=== PATIENT | female | born 1985 | race Caucasian/White ===

== ENCOUNTER 2017-12-02 11:50 | Emergency (ER) | payer OTHER ==
--- NOTE | 2017-12-02 13:18 | ED Physician Documentation ---
History of Present Illness - Stated complaint Stated Complaint: L CONGESTION - Chief complaint Chief Complaint: Heent - History obtained from History obtained from: Patient - History of Present Illness Timing: Yesterday Pain level max: 0 Pain level now: 0 Improved by: Nothing Worsened by: Nothing - Additonal information Additional information: Patient is a 32-year-old female with a history of cerumen impaction in the past. States that her left ear feels full and she cannot hear out of the ear. No pain. No fevers. No congestion. No cough. No possibility of Review of Systems Constitutional: denies: Fever, Chills Nose: denies: Rhinorrhea / runny nose, Congestion Throat: denies: Sore throat : denies: Now EGA PD PAST MEDICAL HISTORY - Past Medical History Past Medical History: Yes Endocrine/Autoimmune: None Psych: ADD/ADHD - Past Surgical History Past Surgical History: No - Present Medications Home Medications: Ambulatory Orders Medication Instructions Recorded Confirmed Dextroamphetamine/Amphetamine 20 mg PO DAILY 05/07/14 07/13/15 [Adderall 20 mg Tablet] Multivitamin [Multivitamins] 1 each PO 12/02/17 - Allergies Allergies/Adverse Reactions: Allergies Allergy/AdvReac Type Severity Reaction Status Date / Time amoxicillin trihydrate * Allergy Unknown Verified 12/02/17 12:12 [From Augmentin] potassium clavulanate * Allergy Unknown Verified 12/02/17 12:12 [From Augmentin] - Social History Does the pt smoke?: No Smoking Status: Never smoker Does the pt drink ETOH?: Yes Does the pt have substance abuse?: No - Immunizations Immunizations are current?: Yes - POLST Patient has POLST: No PD ED PE NORMAL - Vitals Vital signs reviewed: Yes - General General: Alert and oriented X 3 - HEENT HEENT: Moist mucous membranes, Pharynx benign, Other (Whitehead impacted cerumen in the left ear canal. The right ear canal is approximately 95% occluded.) - Neck Neck: Supple, no meningeal sign - Derm Derm: Warm and dry - Neuro Neuro: Alert and oriented X 3 Results - Vitals Vitals: Vital Signs - 24 hr 12/02/17 12/02/17 12:10 13:52 Temperature 36.5 C Heart Rate 78 68 Respiratory 16 12 Rate Blood Pressure 115/70 115/61 O2 Saturation 100 99 Oxygen O2 Source Room air PD MEDICAL DECISION MAKING - ED course Complexity details: considered differential, d/w patient ED course: Cerumen removed in the emergency department. Tolerated well. Will continue supportive care at home and have her follow-up with her doctor. Patient counseled regarding signs and symptoms for which I believe and urgent re- evaluation would be necessary. Patient with good understanding of and agreement to plan and is comfortable going home at this time This document was made in part using voice recognition software. While efforts are made to proofread this document, sound alike and grammatical errors may occur. - Sepsis Event Vital Signs: Vital Signs - 24 hr 12/02/17 12/02/17 12:10 13:52 Temperature 36.5 C Heart Rate 78 68 Respiratory 16 12 Rate Blood Pressure 115/70 115/61 O2 Saturation 100 99 Oxygen O2 Source Room air Departure - Departure Disposition: 01 Home, Self Care Clinical Impression: Cerumen impaction Qualifiers: Laterality: bilateral Qualified Code(s): H61.23 - Impacted cerumen, bilateral Condition: Good Instructions: ED Wax Ear Home Removal Follow-Up: your,doctor as needed [Other] Comments: Return if you worsen. You can also try colace to break up your ear wax at home. Discharge Date/Time: 12/02/17 13:51
[2017-12-02 13:53] VITALS: BP 115/61
== END 2017-12-02 13:51 | disposition home or self-care (01) ==
LOC: ED 11:50
DX: H61.23 Impacted cerumen, bilateral (principal)
CPT/HCPCS: 69209; 99282; 99283

== ENCOUNTER 2018-07-29 12:00 | Emergency (ER) | payer OTHER ==
[2018-07-29 12:04] VITALS: BP 124/78
--- NOTE | 2018-07-29 12:45 | ED Physician Documentation ---
PD HPI OPHTHO - Stated complaint Stated Complaint: LT EYE REDNESS/[place] - Chief complaint Chief Complaint: Heent - History obtained from History obtained from: Patient - History of Present Illness Timing - onset: Last night Timing - duration: Days (1) Timing - details: Gradual onset Pain level max: 4 Pain level now: 0 Location: Left Quality / character: Burning, Aching Associated symptoms: Redness, Swelling, Tearing, Discharge (yellow) Contributing factors: Wears glasses (during the week), Wears contacts (slept in contacts last night) Recently seen: Not recently seen Review of Systems Constitutional: denies: Fever, Chills : denies: Now EGA Skin: denies: Rash PD PAST MEDICAL HISTORY - Past Medical History Past Medical History: Yes Endocrine/Autoimmune: None Psych: ADD/ADHD - Past Surgical History Past Surgical History: No - Present Medications Home Medications: Ambulatory Orders Medication Instructions Recorded Confirmed Dextroamphetamine/Amphetamine 20 mg PO DAILY 05/07/14 07/29/18 [Adderall 20 mg Tablet] Multivitamin [Multivitamins] 1 each PO DAILY 12/02/17 07/29/18 Doxycycline Hyclate 50 mg PO DAILY 07/29/18 07/29/18 Moxifloxacin HCl [Moxifloxacin] 1 drops LEFTEYE Q8H 7 Days #1 07/29/18 bottle Spironolactone [Aldactone] 25 mg PO DAILY 07/29/18 07/29/18 - Allergies Allergies/Adverse Reactions: Allergies Allergy/AdvReac Type Severity Reaction Status Date / Time amoxicillin trihydrate * Allergy Unknown Verified 07/29/18 12:04 [From Augmentin] potassium clavulanate * Allergy Unknown Verified 07/29/18 12:04 [From Augmentin] - Social History Does the pt smoke?: No Smoking Status: Never smoker Does the pt drink ETOH?: Yes Does the pt have substance abuse?: No - Immunizations Immunizations are current?: Yes - POLST Patient has POLST: No PD ED PE NORMAL - Vitals Vital signs reviewed: Yes - General General: Alert and oriented X 3, No acute distress - HEENT HEENT: Moist mucous membranes, Other (Right eye is normal. Left eye has erythema and conjunctival injection with slight yellow drainage. She states her vision is normal) - Neck Neck: Supple, no meningeal sign - Cardiac Cardiac: RRR - Respiratory Respiratory: No respiratory distress, Clear bilaterally - Derm Derm: Warm and dry - Neuro Neuro: Alert and oriented X 3 Results - Vitals Vitals: Vital Signs - 24 hr 07/29/18 12:02 Temperature 37.1 C Heart Rate 84 Respiratory 20 Rate Blood Pressure 124/78 O2 Saturation 100 Oxygen O2 Source Room air PD MEDICAL DECISION MAKING - ED course Complexity details: considered differential, d/w patient ED course: Patient with what looks like conjunctivitis after slipping in her contacts. We will have her abstain from wearing her contacts for the next week and treat with moxifloxacin drops. Patient counseled regarding signs and symptoms for which I believe and urgent re-evaluation would be necessary. Patient with good understanding of and agreement to plan and is comfortable going home at this time This document was made in part using voice recognition software. While efforts are made to proofread this document, sound alike and grammatical errors may occur. Departure - Departure Disposition: 01 Home, Self Care Clinical Impression: Conjunctivitis Qualifiers: Conjunctivitis type: acute Acute conjunctivitis type: bacterial Laterality: left Qualified Code(s): H10.32 - Unspecified acute conjunctivitis, left eye Condition: Good Instructions: ED Conjunctivitis Bacterial Follow-Up: your,doctor in 1 week [Other] Prescriptions: Moxifloxacin HCl [Moxifloxacin] 1 drops LEFTEYE Q8H 7 Days #1 bottle
== END 2018-07-29 13:11 | disposition home or self-care (01) ==
LOC: ED 12:00
DX: H10.32 Unspecified acute conjunctivitis, left eye (principal)
CPT/HCPCS: 99283